=== PATIENT | male | born 1955 | race Hispanic/Latino ===

== ENCOUNTER → 2019-04-24 | Outpatient (CLI) | payer OTHER ==
--- NOTE | 2019-04-25 20:50 | Diagnostic Imaging Report ---
EXAMINATION: MRI Abdomen without contrast/MRCP. TECHNIQUE: Axial T1 nonfat sat in and out of phase, axial T2 fat sat, coronal T2 nonfat sat, axial DWI and ADC MR images of the abdomen were obtained. No intravenous gadolinium was given. Heavily T2-weighted MRCP images were also obtained, including thick and thin slab MRCP ASSETT and 3-D reconstructions. CLINICAL HISTORY:Abdominal pain for one month. History of abnormal CT at outside hospital COMPARISON: No comparison exam is available FINDINGS:LACK OF GADOLINIUM DECREASES SENSITIVITY FOR DETECTION OF INTRA-ABDOMINAL PATHOLOGY. LOWER THORAX: Unremarkable. LIVER: Normal hepatic size and contour.. Mild signal dropout on out of phase images consistent with mild steatosis (calculated hepatic fat fraction 6.1%, calculated hepatic fat percentage 13.3%). No focal T2 hyperintense hepatic lesions. BILIARY: No intra or extrahepatic biliary ductal dilation. The common bile duct measures approximately 5-6 mm at the inocencio hepatis and 5 mm at the pancreatic head. Normal luminal contour and tapering to the ampulla.. Gallbladder is unremarkable. No stones, wall thickening or pericholecystic fluid.. PANCREAS: No ductal dilation. 6-7 mm T2 hyperintense lesion likely arising from the pancreatic head/neck, predominantly seen in the coronal images (8, image 23, series 11, image 15 and 16, and series 12, image 19). No other focal lesions.. SPLEEN: No splenomegaly. ADRENALS: No nodules. KIDNEYS: No hydronephrosis or solid enhancing mass in the imaged portion of the kidneys. PERITONEUM / RETROPERITONEUM: No upper abdominal free fluid. GI TRACT: No bowel dilation. LYMPH NODES: No upper abdominal lymphadenopathy. VESSELS: Normal flow voids are identified. BONES AND SOFT TISSUES: No abnormal bone marrow signal. No soft tissue abnormalities. IMPRESSION: 1. No intra or extrahepatic biliary ductal dilation. No MR evidence of cholelithiasis or choledocholithiasis. 2. 6-7 mm T2 hyperintense lesion in the pancreatic head/neck, which may represent a small side branch IPMN. Further characterization is limited by the lack of intravenous contrast. Recommend contrast enhanced MRI abdomen with pancreas protocol for further evaluation. 3. Mild hepatic steatosis. Signed by: Dr. Victoriano Damon M.D. on 04/25/2019 8:46 PM
== END ==
LOC: MRI 13:21
PROVIDERS: ATTEND Internal Medicine Gastroenterology
DX: R93.5 Abnormal findings on diagnostic imaging of other abdominal regions, including retroperitoneum (principal)
CPT/HCPCS: 74181

== ENCOUNTER → 2020-02-13 | Outpatient (CLI) | payer MEDICARE ==
[~2020-02-13] MED LIST: GADOBENATE DIMEGLUMINE 1 ML IV ONE; SODIUM CHLORIDE 0.9% 100 ML ONE
[2020-02-13 09:25] LABS: BLOOD UREA NITROGEN 18 mg/dL (7-26); BUN/CREATININE RATIO 16 (6-25); CREATININE, SERUM 1.16 mg/dL (0.72-1.25); EST GLOMERULAR FILTRATION RATE > 60 ML/MIN (60-)
--- NOTE | 2020-02-13 16:20 | Diagnostic Imaging Report ---
TECHNIQUE: MRI of the abdomen and MRCP WITHOUT and WITH intravenous contrast. 3-D volume reconstructions were obtained to evaluate the biliary ductal system. INDICATION: 64-year-old man with cyst in pancreatic head. COMPARISON: MRCP 04/24/2019. FINDINGS: Suboptimal evaluation secondary to motion artifact on postcontrast sequences. LOWER THORAX: Unremarkable. LIVER: No hepatic signal abnormality. No focal hepatic lesions. BILIARY: Gallbladder is unremarkable. No biliary ductal dilatation or filling defect. SPLEEN: No splenomegaly. PANCREAS: No significant change in the 0.7 cm unilocular cystic lesion in the pancreatic neck. No solid masses or ductal dilatation. ADRENALS: No adrenal nodules. KIDNEYS/URETERS: No hydronephrosis or solid mass lesions. PERITONEUM/RETROPERITONEUM: No free fluid. LYMPH NODES: No lymphadenopathy. VESSELS: Unremarkable. GI TRACT: No distention or wall thickening. BONES AND SOFT TISSUES: Degenerative changes of the lumbar spine. Soft tissues are unremarkable. IMPRESSION: Suboptimal evaluation secondary to motion artifact on postcontrast sequences. 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 RECOMMENDATION: Follow-up abdomen MRI/MRCP is recommended in 12 months for reassessment of the pancreatic cystic lesion. Signed by: Sheryl Peoples MD on 02/13/2020 4:17 PM
== END ==
LOC: MRI 08:30
PROVIDERS: ATTEND Internal Medicine Gastroenterology
DX: R93.89 Abnormal findings on diagnostic imaging of other specified body structures (principal); I10 Essential (primary) hypertension; E66.9 Obesity, unspecified; Z71.3 Dietary counseling and surveillance
CPT/HCPCS: 36415; 74183; 82565; 84520; A9577; J7050

== ENCOUNTER → 2021-07-04 | Outpatient (CLI) | payer MEDICARE ==
[~2021-07-04] MED LIST changes: -SODIUM CHLORIDE 0.9% 100 ML ONE; +SODIUM CHLORIDE 0.9% 50ML 50 ML ONE
[2021-07-04 09:26] LABS: CREATININE, SERUM 0.92 mg/dL (0.72-1.25)
== END ==
LOC: MRI 08:31
PROVIDERS: ATTEND Internal Medicine Gastroenterology
DX: R93.89 Abnormal findings on diagnostic imaging of other specified body structures (principal); Z71.3 Dietary counseling and surveillance; I10 Essential (primary) hypertension; E66.9 Obesity, unspecified
CPT/HCPCS: 36415; 74183; 82565; 84520; A9577